=== PATIENT | female | born 1990 | race Caucasian/White ===

== ENCOUNTER 2022-05-05 12:43 | Emergency (ER) | payer SELFPAY ==
[2022-05-05] VITALS (9 sets, daily range): BP systolic 75–136; BP diastolic 32–98; PULSE 50–98; RESP 8–19; TEMP 36–36.9; O2SAT 95–98
--- NOTE | 2022-05-05 12:45 | RT.EKG_ITS ---
APPROVED REPORT Exam: Resting ECG Reason for Exam: hypotension Patient Location: E HR:65 bpm ECG Measurements Heart Rate 65 AXIS NH 164 P 43 QRSd 92 QRS -23 QT 453 T 3 QTc 472 Conclusion Sinus rhythm...normal P axis, V-rate 60- 99
[2022-05-05 13:00] LABS: Source Nasal/Nares
--- NOTE | 2022-05-05 13:06 | ED.GENADUL_ITS ---
Discharge Plan Disposition Patient Disposition: HOME Condition: Stable Discharge Details Clinical Impression: Threatened miscarriage, Dizziness, Transaminitis Primary Care Provider: None,None ED Provider: Anthony Arrington Discharge Instructions Instructions: Threatened Miscarriage (ED), Dizziness (ED) Additional Instructions: Your liver enzymes were elevated today. Please be sure to discuss this with your OB or primary care physician. Diagnostic labs including a hepatitis panel is pending at this time. This result should be available within a few days. Be sure to follow-up on this and discuss it with your primary care physician and OB. Additional diagnostic testing and treatment may be indicated depending on the results of the study. Please refrain from sexual activity until cleared by your career development manager. 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 Return to the ER immediately for any worsening or new concerning symptoms. Referrals: [facility] [Provider Group] Discharge Data Discharge Date/Time-TO BE ENTERED AT DEPARTURE: 05/05/22 17:35 Medical Decision Making 1309 --32-year-old -0-5-0 at 6 weeks by dating here with dizziness, lower abdominal cramping bilaterally and vaginal bleeding. On initial assessment, patient hypotensive with systolic 75. Repeat blood pressure in the room much improved. Consider ectopic . Plan to obtain stat ultrasound. Care delayed secondary to inability to secure IV access. -- I attempted peripheral ultrasound-guided IV unsuccessfully. Contacted anesthesia to assist with IV access. 1629 --pelvic ultrasound was interpreted by radiology: Positive IUP, early with no identifiable heartbeat. Labs reviewed and beta-hCG consistent with ultrasound at 3000. Mild transaminitis noted. I will send hepatitis panel which will be pending at time of discharge. Plan for discharge with outpatient follow-up with OB. All results were discussed with the patient. Usual and customary discharge instructions including discharge plan discussed with the patient was in agreement. Lab Data Lab results reviewed: Yes I reviewed the patient's lab results. Labs: Laboratory Tests Range/Units 05/05/22 05/05/22 05/05/22 12:57 15:21 15:21 WBC (4.4-10.8) 10^3/uL 5.75 RBC (3.93-5.22) 10^6/uL 4.34 Hgb (11.2-15.7) g/dL 16.0 H Hct (36.0-46.0) % 44.0 MCV (80-95) fL 101 H MCH (27.0-33.0) pg 36.9 H MCHC (32.0-36.0) % 36.4 H RDW (11.7-14.6) % 13.3 Plt Count (130-400) 10^3/uL 215 MPV (8.0-11.0) fL 9.5 Immature Gran % 0.3 Neutrophils % 82.1 Lymphocytes % 10.6 Monocytes % 6.8 Eosinophils % 0.0 Basophils % 0.2 Nucleated RBC % (0.0-0.3) % 0.0 Absolute Neutrophils (1.2-6.7) 10^3/uL 4.72 Absolute Lymphocytes (1.2-3.4) 10^3/uL 0.61 L Absolute Monocytes (0.1-0.8) 10^3/uL 0.39 Absolute Eosinophils (0.0-0.7) 10^3/uL 0.00 Absolute Basophils (0.0-0.2) 10^3/uL 0.01 Sodium (136-145) mmol/L 138 Potassium (3.5-5.1) mmol/L 4.0 Chloride (98-107) mmol/L 99 Carbon Dioxide (21.0-32.0) mmol/L 26.1 Anion Gap (3-11) mmol/L 12.9 H BUN (7-18) mg/dL 9 Creatinine (0.55-1.02) mg/dL 0.6 Est GFR (CKD-EPI 2020) (mL/min/1.73m2) 122.23 Glucose (74-106) mg/dL 107 H Calcium (8.5-10.1) mg/dL 9.6 Magnesium (1.8-2.4) mg/dL 1.7 L Total Bilirubin (0.2-1.0) mg/dL 0.5 AST (15-37) U/L 104 H ALT (14-59) U/L 106 H Alkaline Phosphatase (46-116) U/L 93 Troponin I (<or=60) ng/L < 50 Total Protein (6.4-8.2) g/dL 8.8 H Albumin (3.4-5.0) g/dL 4.4 Beta HCG, Quant (1-3) mIU/mL 3050 H COVID-19 Source Nasal/Nares Patient ABO/Rh Antibody Screen Range/Units 05/05/22 15:21 WBC (4.4-10.8) 10^3/uL RBC (3.93-5.22) 10^6/uL Hgb (11.2-15.7) g/dL Hct (36.0-46.0) % MCV (80-95) fL MCH (27.0-33.0) pg MCHC (32.0-36.0) % RDW (11.7-14.6) % Plt Count (130-400) 10^3/uL MPV (8.0-11.0) fL Immature Gran % Neutrophils % Lymphocytes % Monocytes % Eosinophils % Basophils % Nucleated RBC % (0.0-0.3) % Absolute Neutrophils (1.2-6.7) 10^3/uL Absolute Lymphocytes (1.2-3.4) 10^3/uL Absolute Monocytes (0.1-0.8) 10^3/uL Absolute Eosinophils (0.0-0.7) 10^3/uL Absolute Basophils (0.0-0.2) 10^3/uL Sodium (136-145) mmol/L Potassium (3.5-5.1) mmol/L Chloride (98-107) mmol/L Carbon Dioxide (21.0-32.0) mmol/L Anion Gap (3-11) mmol/L BUN (7-18) mg/dL Creatinine (0.55-1.02) mg/dL Est GFR (CKD-EPI 2020) (mL/min/1.73m2) Glucose (74-106) mg/dL Calcium (8.5-10.1) mg/dL Magnesium (1.8-2.4) mg/dL Total Bilirubin (0.2-1.0) mg/dL AST (15-37) U/L ALT (14-59) U/L Alkaline Phosphatase (46-116) U/L Troponin I (<or=60) ng/L Total Protein (6.4-8.2) g/dL Albumin (3.4-5.0) g/dL Beta HCG, Quant (1-3) mIU/mL COVID-19 Source Patient ABO/Rh B Positive Antibody Screen NEGATIVE HPI General Mode of arrival: ambulatory . Date/Time Provider Initiated Documentation: 05/05/22 12:49 . Limitations to Documentation: no limitations . Information obtained by: patient . HPI Narrative: 32-year-old female -0-5-0 at 6 weeks by dating, here with chief complaint of dizziness. Patient notes has had severe dizziness today, worse with standing. She also notes associated cramping of her lower abdomen bilaterally as well as mild bleeding that started today. She denies associated nausea or vomiting. No fever. General Stated Complaint: Abd Prob MICHAEL: 2 Review of Systems All systems reviewed & are unremarkable except as noted in HPI and below Constitutional Constitutional: Denies fever(s) Respiratory Respiratory: Denies cough PFSH All Active Problems (Updated 05/05/22 @ 16:28 by Anthony Arrington MD) Threatened miscarriage (Acute) Dizziness (Acute) Transaminitis (Acute) Social History Smoking/Tobacco Use Status: Current every day Tobacco Type: cigarettes Smoking risk assessment performed?: Yes Alcohol Intake: current Alcohol type: wine Drug use: Daily Substance use type: former substance user, opiates and inhalants Details: Daily intranasal Fentanyl use I sniff it Additional Social history: Boyfriend in room with pt and seems supportive. Pt drinks 2-3 bottles of wine daily and sniffs Fentanyl daily. Exam Const General: cooperative and no acute distress HENMT Mouth: moist mucous membranes Eyes Conjunctivae: normal conjunctivae Sclera: normal sclerae Neck Neck: trachea midline and supple Resp Auscultation: clear to auscultation bilaterally, no rales, no rhonchi and no wheezes Cardio Rate: regular rate and not tachycardic Rhythm: regular rhythm Heart Sounds: no murmurs GI Palpation: soft, not firm, no guarding, no masses, not rigid and nontender Skin General skin exam: no rashes or lesions noted Neuro General: patient alert, patient awake and tone normal Cognition: normal cognition Speech: speech normal Extrem General: no edema Psych Appearance: grossly normal Mental Status: mental status grossly normal Course Vital Signs Vital signs: Vital Signs Temperature 36 C L 05/05/22 12:41 Pulse 50 L 05/05/22 12:41 Respiratory Rate 16 05/05/22 12:41 Blood Pressure 75/32 L 05/05/22 12:41 Pulse Oximetry 98 05/05/22 12:41 Temperature 36 C L 05/05/22 12:41 Temperature Source Temporal Artery Scan 05/05/22 12:41 Pulse 50 L 05/05/22 12:41 Respiratory Rate 16 05/05/22 12:41 Blood Pressure 75/32 L 05/05/22 12:41 Blood Pressure Position Supine 05/05/22 12:41 Pulse Oximetry 98 05/05/22 12:41 Oxygen Delivery Method Room Air 05/05/22 12:41 Oxygen Flow Rate 0 05/05/22 12:41 Lab/Test Results Lab/Test Results: Laboratory Tests Range/Units 05/05/22 12:57 COVID-19 Source Nasal/Nares
--- NOTE | 2022-05-05 13:11 | DI.US_ITS ---
Exam(s) US OB 1ST TRIMESTER EXAM: US OB 1ST TRIMESTER CLINICAL HISTORY: cramping, bleeding, 6weeks by dating. COMPARISON: No exams were available for comparison TECHNIQUE: Transabdominal Transvaginal first trimester obstetrical ultrasound performed. FINDINGS: Sonographic images demonstrate a single intrauterine gestation. A yolk sac and pole are not seen at this time. There is an intrauterine gestational sac. It is too small to calculate date at this time. No free fluid identified. The right ovary could not be visualized on this examination. Pelvic Measurments Uterus: 8.1 x 4.4 x 4.9 cm Rt Ovary: Not visualized on this examination. Lt Ovary: 3.0 x 2.0 x 2.2 cm. A 1.8 x 1.2 x 1.4 cm corpus luteal cyst is seen on the left ovary. IMPRESSION: 1. There is a single intrauterine gestational sac present at this time. It is too small for dating. The yolk sac, pole and heart rate are not identified at this time. Follow-up beta HCG a nd/or obstetrical ultrasound may be obtained to confirm viability. 2. Findings were discussed with Jyoti Fontenot at 2:30 p.m. on 05/05/2022. DATA REPOSITORY:
[2022-05-05 15:35] LABS: Abs Immature Grans 0.02 10^3/uL (0.0-0.06); Absolute Basophil Count 0.01 10^3/uL (0.0-0.2); Absolute Lymphocyte Count 0.61 10^3/uL (1.2-3.4); Absolute Monocyte Count 0.39 10^3/uL (0.1-0.8); Absolute Neutrophil Count 4.72 10^3/uL (1.2-6.7); Basophils % 0.2; Immature Grans % 0.3; Lymphocytes % 10.6; MCH 36.9 pg (27.0-33.0); MCHC 36.4 % (32.0-36.0); MCV 101 fL (80-95); MPV 9.5 fL (8.0-11.0); Monocytes % 6.8; Neutrophils % 82.1; Platelet Count 215 10^3/uL (130-400); RBC 4.34 10^6/uL (3.93-5.22); RDW 13.3 % (11.7-14.6); WBC 5.75 10^3/uL (4.4-10.8)
--- NOTE | 2022-05-05 15:45 | W.ANESVAS ---
Peripheral IV Placement Date Performed: 05/05/22 Procedure Time: 14:46 Requesting Provider: Anthony Arrington Procedure Location: Emergency Department Sedation Given (Indicate Dose Given): No Sedation given Patient Mental Status: Awake Laterality: Right Insertion Site: Basilic Size & Type: 20 ga. Dressing: IV Dressing Placed Ultrasound: Used to evelin site Number of Attempts (See previous attempts in note section): 2 Procedure Tolerated: No Complications and Patient did not tolerate well Procedure Outcome: Successful Performed By: Win Larios
[2022-05-05 16:10] LABS: ALT 106 U/L (14-59); AST 104 U/L (15-37); Albumin 4.4 g/dL (3.4-5.0); Alkaline Phosphatase 93 U/L (46-116); Anion Gap 12.9 mmol/L (3-11); BUN 9 mg/dL (7-18); Bilirubin, Total 0.5 mg/dL (0.2-1.0); CO2 26.1 mmol/L (21.0-32.0); CREATININE 0.6 mg/dL (0.55-1.02); Calcium 9.6 mg/dL (8.5-10.1); Chloride 99 mmol/L (98-107); Estimated GFR 122.23 (mL/min/1.73m2); Glucose 107 mg/dL (74-106); Magnesium 1.7 mg/dL (1.8-2.4); Sodium 138 mmol/L (136-145); Total Protein 8.8 g/dL (6.4-8.2); Troponin I < 50 ng/L (<or=60)
[2022-05-05 16:12] LABS: HCG Quant, Pregnancy 3050 mIU/mL (1-3)
[2022-05-05 16:49] LABS: ALT 107 U/L (14-59); AST 103 U/L (15-37); Albumin 4.5 g/dL (3.4-5.0); Alkaline Phosphatase 91 U/L (46-116); Bilirubin, Direct 0.2 mg/dL (0.0-0.2); Bilirubin, Total 0.5 mg/dL (0.2-1.0); Total Protein 8.8 g/dL (6.4-8.2)
[2022-05-05 22:07] LABS: COVID-19 PCR Negative (Negative)
== END 2022-05-05 17:35 | disposition home or self-care (01) ==
PROVIDERS: Emergency Provider Student in an Organized Health Care Education/Training Program
DX: O26.891 Other specified pregnancy related conditions, first trimester (principal); R74.01 Elevation of levels of liver transaminase levels; R42 Dizziness and giddiness; O20.0 Threatened abortion; O99.331 Smoking (tobacco) complicating pregnancy, first trimester; F17.210 Nicotine dependence, cigarettes, uncomplicated; Z3A.01 Less than 8 weeks gestation of pregnancy; Z20.822 Contact with and (suspected) exposure to COVID-19
CPT/HCPCS: 80053; 80076; 86850; 86900; 86901; 87635; 93005; 96360; 99284; 76801; 83735; 84484; 84702; 85025; 93010; 99285